=== PATIENT | female | born 1985 | race African-American/Black ===

== ENCOUNTER 2020-11-06 09:51 | Emergency (ER) | payer OTHER ==
[~2020-11-06] VITALS: Ht 177.8 cm; Wt 122.5 kg
[2020-11-06 10:00] VITALS: BP 118/79
[2020-11-06] MEDS ORDERED: NOHOMEMEDICATIONS (10:03)
== END 2020-11-06 11:44 | disposition home or self-care (01) ==
LOC: ER 09:51
PROVIDERS: Emergency Medicine
DX: U07.1 COVID-19 (principal)